=== PATIENT | female | born 1980 | race Caucasian/White ===

== ENCOUNTER 2024-09-02 11:29 | Outpatient (AMB) | payer OTHER, SELFPAY ==
--- NOTE | 2024-09-02 11:30 | A.OFFPC_ITS ---
Vital Signs 09/02/24 11:37 09/02/24 11:58 09/02/24 12:23 Height 5 ft 5.35 in Weight 185 lb 8 oz BMI 30.5 BP 168/84 H 164/78 H 132/70 Blood Pressure Location Rt brachial Lt brachial Lt brachial Position Sitting Sitting Respiration 16 Pulse 110 H Pulse Source Pulse Oximeter Temp 99 F Temp Source Oral Pulse Oximetry (%) 97 Oxygen Delivery Method Room Air Intake Visit Reasons: Est. Care Intake Note: New patient visit. Clinical Team Lead Required: No Medication List - Last Reconciled 09/02/24 by Breanna Rodriguez PA-C clonazepam 1 mg PO QID PRN sertraline 2.5 tablets daily Tobacco use date assessed: 09/02/24 Dental Screening Dental Screen Date: 09/02/24 Did you have a dental visit in the last 12 months?: Yes Did you have a dental problem in the last 6 months where you did not have access to dental care?: No Was dental information given to patient?: Patient has dentist HPI Est. Care HPI Details Pt is a 44 y/o female who presents today to establish care. She has a hx of anxiety, depression, ocd, white coat htn, hx of thyroiditis following pp, Psych: She is on sertraline and clonazepam. She follows with the [facility]. Overall feels well controlled. Her daughter just graduated hs and is going to be staying at [facility] this summer and this is stressing her out. CV: Bp is elevated today. Shes ates that it is always elevated in the doctors office, at the end of visit bp 132/70. She states 2 months ago she went to a walk in and it was 128/78. She took 2 shots of espresso prior to this appointment. No Cp or sob. No palpitations. She has never needed medications for bp or cholesterol. General: would like to lose weight. She states that she struggles with weight despite not eating much. She is not interested in any medication for this. States that she knows that she needs to walk around more. When she tries to move more she does get low back pain. Msk: has chronic low back pain and has seen PSS. She states that she knows she needs to work on some strength training. Collection Administrator: Overdue Mammo: Never had Colonoscopy: Never had Smoker: 30 years 1 ppd, no family history PFSH Surgical History (Updated 09/02/24 @ 12:02 by Kristan Patricia CMA) H/O wisdom tooth extraction H/O section Family History (Updated 09/02/24 @ 12:01 by Kristan Patricia CMA) Father Alcoholism Mother HTN (hypertension) Alcoholism Maternal Grandmother HTN (hypertension) High blood cholesterol Other Substance abuse Social History (Updated 09/02/24 @ 12:01 by Kristan Patricia CMA) Housing: House Alcohol intake: never Patient Tobacco Use Status: Current someday Tobacco user (Smokes a quarter of a cigarette to help with going to the bathroom. 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 1. Little interest or pleasure in doing things: not at all 2. Feeling down, depressed, or hopeless: several days 3. Trouble falling or staying asleep, or sleeping too much: not at all 4. Feeling tired or having little energy: not at all 5. Poor appetite or overeating: not at all 6. Feeling bad about yourself - or that you are a failure or have let yourself or your family down: not at all 7. Trouble concentrating on things, such as reading the newspaper or watching television: not at all 8. Moving or speaking so slowly that other people could have noticed. Or the opposite - being so fidgety or restless that you have been moving around a lot more than usual: not at all 9. Thoughts that you would be better off or of hurting yourself in some way: not at all Total score: 1 Depression Screening Interpretation: Negative Depression Screening Done: Yes 64923 - PHQ-9 Billing: Yes Source: Developed by Drs. Ab Mcginnis, Johana Hernández, Anmol Winston and colleagues, with an educational vasyl from [employer]. Thrive Questionnaire Date Thrive assessed: 08/26/24 I am a: Patient What is your living situation today?: I have a steady place to live Within the past 12 months, did the food you bought not last and you didn't have the money to get more?: Never true Within the past 12 months, did you worry whether your food would run out before you got money to buy more?: Never true Do you have trouble paying for medicines?: No Do you have trouble getting transportation to medical appointments?: No Do you have trouble paying your heating and electricity bill?: No Do you have trouble taking care of your child, family member or friend?: No Do you have trouble with day-to-day activities such as bathing, preparing meals, shopping, managing finances, etc.?: No Are you currently unemployed and looking for a job?: No Are you interested in more education?: No Please select the resources that you would like help with: None Currently or been in a relationship where the following occur: No concerns reported THRIVE Score: 0 AUDIT C Alcohol Use Questionnaire (AUDIT-C) 1. How often do you have a drink containing alcohol?: Never 2. How many drinks containing alcohol do you have on a typical day when you are drinking?: 1 or 2 3. How often do you have six or more drinks on one occasion?: Never Total Score: 0 EH-7 AMB Questionnaire EH-7 Date EH - 7 assessed: 09/02/24 Feeling nervous, anxious, or on edge: 1 = Several days Not being able to stop or control worryin = Several days Worrying too much about different things: 0 = Not at all Trouble relaxin = Not at all Being so restless that it is hard to sit still: 0 = Not at all Becoming easily annoyed or irritable: 0 = Not at all Feeling afraid as if something awful might happen: 1 = Several days Total EH-7 score (0-4 normal; 5-9 mild; 10-14 moderate; 15-21 severe): 3 Source: Developed by Drs. Ab Mcginnis, Johana Hernández, Anmol Winston and colleagues, with an educational vasyl from [employer]. EH-7 Assessment Billing EH-7 Assessment Tool: EH-7 Assessment 72908 Physical exam (Primary Care) Vital Signs: Last Vital Signs Temp 99 F 09/02/24 11:37 Pulse 110 H 09/02/24 11:37 Resp 16 09/02/24 11:37 BP 132/70 09/02/24 12:23 Pulse Ox 97 09/02/24 11:37 Oxygen Delivery Method Room Air 09/02/24 11:37 BMI result Body Mass Index 30.5 Tobacco/Smoking Status: Tobacco use Status Tobacco use date assessed 09/02/24 09/02/24 11:42 Patient Tobacco Use Status Current someday Tobacco ( 09/02/24 12:01 Smokes a quarter of a cigarette to help with going to the bathroom. Quit normal use 12/2023) e-Cigarette/Vaping Use Currently Using 09/02/24 12:01 PHQ-9: PHQ-9 Score PHQ-9: Total score 1 09/02/24 12:14 Depression Screening Interpretation: Negative Thrive Assessment: Date of Thrive Assessment Date Thrive assessed 08/26/24 09/02/24 11:42 Currently or been in a relationship where the following occur: No concerns reported Const Orientation/consciousness: patient oriented x3 HENMT Ears: hearing grossly normal bilaterally Neck Thyroid: Thyroid normal Lymphatic: no lymphadenopathy noted Resp Auscultation: clear to auscultation bilaterally Cardio Rate: regular rate Rhythm: regular rhythm Heart sounds: S1 normal heart sound present and S2 normal heart sound present GI Inspection: Yes normal to inspection Palpation (GI): Soft to palpation and Other GI palpation findings present (nontender, no cva tenderness) Auscultation: normoactive bowel sounds Rectal Exam - Female: deferred Skin General skin exam: no rashes or lesions noted Neuro General: patient oriented x3, gait normal and no focal motor deficits Coding Level of Care Code New Pt Level 4 (47049) Complex EM visit Add On G2211 Diagnoses Generalized anxiety disorder F41.1 Major depression in partial remission F32.4 OCD (obsessive compulsive disorder) F42.9 Elevated blood-pressure reading, without diagnosis of hypertension R03.0 Additional Codes EH-7 Assessment Billing - EH-7 Assessment Tool: EH-7 Assessment 67721 ([id number]) PHQ-9 - 18417 - PHQ-9 Billing: Yes ([id number]) Assessment & Plan Assessment & Plan (1) Generalized anxiety disorder: Code(s): F41.1 - Generalized anxiety disorder Category: Medical Plan: Currently managed by the [facility] (2) Major depression in partial remission: Code(s): F32.4 - Major depressive disorder, single episode, in partial remission Category: Medical Plan: As above (3) OCD (obsessive compulsive disorder): Code(s): F42.9 - Obsessive-compulsive disorder, unspecified Category: Medical Plan: As above (4) Elevated blood-pressure reading, without diagnosis of hypertension: Code(s): R03.0 - Elevated blood-pressure reading, without diagnosis of hypertension Category: Medical Plan: BP improved. Labs ordered today. We will follow up pending test results Plan Referral to gynecology. Referral to GI for colonoscopy. Mammogram ordered Orders: Orders Hemoglobin A1c Today E55.9 - Vitamin D deficiency, unspecified, F32.4 - Major depressive disorder, single episode, in partial remission, F41.1 - Generalized anxiety disorder, F42.9 - Obsessive-compulsive disorder, unspecified, R03.0 - Elevated blood-pressure reading, without diagnosis of hypertension, R73.01 - Impaired fasting glucose UA CC w/rflx Micro + Cult Today E55.9 - Vitamin D deficiency, unspecified, F32.4 - Major depressive disorder, single episode, in partial remission, F41.1 - Generalized anxiety disorder, F42.9 - Obsessive-compulsive disorder, unspecified, R03.0 - Elevated blood-pressure reading, without diagnosis of hypertension, Z13.220 - Encounter for screening for lipoid disorders Vitamin D 25-OH Total Today E55.9 - Vitamin D deficiency, unspecified, F32.4 - Major depressive disorder, single episode, in partial remission, F41.1 - Generalized anxiety disorder, F42.9 - Obsessive-compulsive disorder, unspecified, R03.0 - Elevated blood-pressure reading, without diagnosis of hypertension Complete Blood Count Auto Diff Today E55.9 - Vitamin D deficiency, unspecified, F32.4 - Major depressive disorder, single episode, in partial remission, F41.1 - Generalized anxiety disorder, F42.9 - Obsessive-compulsive disorder, unspecified, R03.0 - Elevated blood-pressure reading, without diagnosis of hypertension Comprehensive [place]. Panel Fast Today E55.9 - Vitamin D deficiency, unspecified, F32.4 - Major depressive disorder, single episode, in partial remission, F41.1 - Generalized anxiety disorder, F42.9 - Obsessive-compulsive disorder, unspecified, R03.0 - Elevated blood-pressure reading, without diagnosis of hypertension Lipid Panel Today E55.9 - Vitamin D deficiency, unspecified, F32.4 - Major depressive disorder, single episode, in partial remission, F41.1 - Generalized anxiety disorder, F42.9 - Obsessive-compulsive disorder, unspecified, R03.0 - Elevated blood-pressure reading, without diagnosis of hypertension TSH reflex Free T4 Today E55.9 - Vitamin D deficiency, unspecified, F32.4 - Major depressive disorder, single episode, in partial remission, F41.1 - Generalized anxiety disorder, F42.9 - Obsessive-compulsive disorder, unspecified, R03.0 - Elevated blood-pressure reading, without diagnosis of hypertension Vitamin B12 and Folate Today E55.9 - Vitamin D deficiency, unspecified, F32.4 - Major depressive disorder, single episode, in partial remission, F41.1 - Generalized anxiety disorder, F42.9 - Obsessive-compulsive disorder, unspecified, R03.0 - Elevated blood-pressure reading, without diagnosis of hypertension MM screening mammo BI Today Z12.31 - Encounter for screening mammogram for malignant neoplasm of breast Referrals STATE TESTED NURSING ASSISTANT Referral Z01.419 - Encounter for gynecological examination (general) (routine) without abnormal findings Gastroenterology Referral Z12.11 - Encounter for screening for malignant neoplasm of colon
[2024-09-02 11:37] VITALS: BP 168/84; PULSE 110; RESP 16; TEMP 37.2; O2SAT 97; BMI 30.5
[2024-09-02 11:58] VITALS: BP 164/78
[2024-09-02 12:23] VITALS: BP 132/70
== END 2024-09-02 16:26 | disposition home or self-care (01) ==
LOC: HO.HMCFM 11:29
PROVIDERS: PCP Physician Assistant; Visit Provider Physician Assistant
DX: F41.1 Generalized anxiety disorder (principal); F32.4 Major depressive disorder, single episode, in partial remission; F42.9 Obsessive-compulsive disorder, unspecified; R03.0 Elevated blood-pressure reading, without diagnosis of hypertension

== ENCOUNTER → 2024-09-02 11:29 | Outpatient (BNVA) | payer OTHER, SELFPAY | PROVIDERS: PCP Physician Assistant; Visit Provider Physician Assistant | DX: F41.1 Generalized anxiety disorder (principal); F42.9 Obsessive-compulsive disorder, unspecified; I10 Essential (primary) hypertension; F32.4 Major depressive disorder, single episode, in partial remission; R03.0 Elevated blood-pressure reading, without diagnosis of hypertension; E55.9 Vitamin D deficiency, unspecified | CPT/HCPCS: 96127; 99202 ==

== ENCOUNTER 2024-11-06 13:56 | Outpatient (AMB) | payer OTHER, SELFPAY ==
--- NOTE | 2024-11-06 14:01 | MHC.OFFVIS ---
Vital Signs 11/06/24 14:08 Height 5 ft 5.3 in Weight 187 lb BMI 30.8 BP 165/72 H Blood Pressure Location Lt brachial Position Sitting Pulse 95 Pulse Oximetry (%) 96 Oxygen Delivery Method Room Air Intake Visit Reasons: COLO SCREENING Intake Note: Patient new consult for 1st pre Colonoscopy screening. Patient denies any GI issues for today. 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 Darleen presents for her initial pre-colonoscopy screening, refered by PCP. She reports no current gastrointestinal symptoms. She states she has regular daily bowel movements without diarrhea, constipation, or blood noted in her stool. She also denies abdominal pain, nausea, heartburn, difficulty swallowing, or changes in appetite. However, she did experience temporary bowel irregularity during a recent vacation, attributed to altered settings and dietary changes, but her bowel movements normalized upon return. Her weight remains stable, and no notable systemic or gastrointestinal associated symptoms or comorbidities are reported. Social hx: -denies ETOH use -denies recreational drug use -Vapes, and smokes half a cigarette daily before her morning bowel movement to aid motility. - family hx as below -denies personal hx of CA -denies significant cardiopulmonary history -tolerated anesthesia in the past without difficulty. 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 [employer] Current occupational exposures/hazards: No Cognitive needs: No Hearing needs: No Vision needs: Yes (distance glasses) Review of Systems Const Reports as per [facility] ENT Reports as per HPI Card Reports as per HPI Resp Reports as per HPI GI Reports as per [facility] Reports as per HPI Physical Exam Vital Signs: Last Vital Signs Pulse 95 11/06/24 14:08 BP 165/72 H 11/06/24 14:08 Pulse Ox 96 11/06/24 14:08 Oxygen Delivery Method Room Air 11/06/24 14:08 BMI result Body Mass Index 30.8 Const General: healthy appearing, no acute distress and well developed Nutritional Appearance: average body habitus Orientation/consciousness: patient oriented x3 HEENT Head: Yes normal to inspection, Yes normocephalic and Yes atraumatic Face and sinus: Yes normal facial exam Eyes General: appearance normal, both eyes and all related structures Neck Neck: Yes normal visual inspection Resp Effort & Inspection: normal respiratory effort, able to speak in complete sentences, no tracheal deviation and symmetric chest movement Cardio Jugular venous distension: no JVD Neuro General: patient oriented x3 Gait exam (Neuro): Normal gait present Psych Appearance: grossly normal Mental Status: mental status grossly normal Speech and movement: Normal speech and movement present Affect: normal affect Attitude: cooperative Thought process: Normal thought process present Thought content: Normal thought content present Insight: Good insight present (Psych) Judgement: Good judgement present (Psych) Assessment & Plan Assessment & Plan (1) Colon cancer screening: Code(s): Z12.11 - Encounter for screening for malignant neoplasm of colon Category: Medical Plan: Due for index screening colonoscopy. No alarm features. Medications: -prescriptions for laxative tablets and MiraLax sent to pharmacy; instructions for Gatorade purchase and clear liquid diet given. Patient educated on scheduling process, procedure preparation, including avoiding certain foods and ensuring clear liquid intake Advised on necessity for ride post-procedure due to sedation. Plan Follow-up after colonoscopy as warranted or sooner if needed Time: I spent a total of 30 minutes on the date of encounter which includes: Preparing to see the patient (reviewed previous documentation, test results and medical history) Performing a medically appropriate exam and/or evaluation Ordering medications, tests, and procedures Documenting clinical information in the health record Medications: New bisacodyl (Dulcolax (bisacodyl)) Take four tablets pre colonoscopy instructions 20 mg (4 x 5 mg) PO ONCE 4 tabs 0RF 1 day polyethylene glycol 3350 (Miralax) per colonoscopy prep instructions 238 grams PO ONCE 238 grams 0RF Coding Level of Care Code New Pt New Pt Level 3 (75390) Patient Type New Diagnoses Colon cancer screening Z12.11
[2024-11-06 14:08] VITALS: BP 165/72; PULSE 95; O2SAT 96; BMI 30.8
== END 2024-11-06 14:27 | disposition home or self-care (01) ==
LOC: HO.HGI 13:57
PROVIDERS: PCP Physician Assistant; Visit Provider Nurse Practitioner Family
DX: Z01.818 Encounter for other preprocedural examination (principal); Z12.11 Encounter for screening for malignant neoplasm of colon
CPT/HCPCS: 99203

== ENCOUNTER → 2024-11-06 13:56 | Outpatient (BNVA) | payer OTHER, SELFPAY | PROVIDERS: PCP Physician Assistant; Visit Provider Nurse Practitioner Family | DX: Z01.818 Encounter for other preprocedural examination (principal) | CPT/HCPCS: 99202 ==

== ENCOUNTER 2024-11-10 08:30 | Outpatient (REF) | payer OTHER, SELFPAY ==
--- NOTE | ~2024-11-10 | MM_ITS ---
EXAMINATION: MM SCREENING DIGITAL BREAST TOMOSYNTHESIS, BILATERAL CLINICAL INFORMATION: Screening. Asymptomatic. COMPARISON: None. This is a baseline study. TECHNIQUE: Digital breast tomosynthesis is performed in both the craniocaudal and mediolateral oblique views along with computer-aided detection (CAD). FINDINGS: BREAST COMPOSITION: There are scattered areas of fibroglandular density (ACR BI-RADS breast composition Category b). RIGHT BREAST: No significant masses, suspicious calcifications or other abnormalities are seen. LEFT BREAST: Focal asymmetry in the upper outer quadrant middle depth at approximately 4.5 cm from the nipple. No suspicious calcifications or other abnormalities are seen. MM/MM tomosynthesis screening BI IMPRESSION: RIGHT BREAST: Negative, no mammographic evidence of malignancy. Normal interval follow-up is recommended in 12 months. LEFT BREAST: Focal asymmetry in the upper outer quadrant middle depth. ASSESSMENT: BI-RADS 0 - Incomplete: Needs additional Imaging. RECOMMENDATION: 1. Additional views of the left breast 2. Targeted ultrasound if warranted after review of the additional views. 3. Radiology department staff will contact the patient for additional imaging. FOLLOW-UP: Additional Imaging required This examination should not preclude the clinical evaluation of a suspicious palpable abnormality. This patient's information was entered into a reminder system with a target due date for their next mammogram. Electronically signed by: Bolivar Cottrell MD 11/16/2024 02:46 PM EDT
== END 2024-11-10 08:31 | disposition home or self-care (01) ==
LOC: HO.MAMMO 08:30
PROVIDERS: PCP Physician Assistant; Visit Provider Physician Assistant
DX: Z12.31 Encounter for screening mammogram for malignant neoplasm of breast (principal)
CPT/HCPCS: 77063; 77067

== ENCOUNTER → 2024-11-10 08:30 | Outpatient (BNV) | payer OTHER, SELFPAY | PROVIDERS: PCP Physician Assistant; Visit Provider Radiology Body Imaging | DX: Z12.31 Encounter for screening mammogram for malignant neoplasm of breast (principal) | CPT/HCPCS: 77063; 77067 ==

== ENCOUNTER 2024-12-15 14:30 | Outpatient (REF) | payer OTHER, SELFPAY ==
--- NOTE | ~2024-12-15 | US_ITS ---
EXAMINATION(S): 1. MM DIAGNOSTIC DIGITAL BREAST TOMOSYNTHESIS, LEFT 2. Targeted ultrasound of the left breast CLINICAL INFORMATION: Callback from screening for left breast focal asymmetry in the upper outer quadrant at about 4.5 cm from the nipple. COMPARISON: November 10, 2024 TECHNIQUE: Digital breast tomosynthesis is performed in full field ML 90 degrees along with computer-aided detection (CAD). Synthesized 2D images are generated from the tomosynthesis. Spot compression tomosynthesis were obtained. FINDINGS: BREAST COMPOSITION: There are scattered areas of fibroglandular density (ACR BI-RADS breast composition Category b). LEFT BREAST: Previously suggested focal asymmetry in the upper outer quadrant is pliable with spot compression. Targeted ultrasound of the left breast was performed at the location of the mammographic finding. The survey throughout the upper outer quadrant did not reveal suspicious sonographic findings. US/US breast LT limited mamm only IMPRESSION: LEFT BREAST: Negative, no mammographic evidence of malignancy. Normal interval follow-up is recommended in 12 months. ASSESSMENT: BI-RADS 1 - Negative RECOMMENDATION: 1 year F/U Results were provided to the patient at time of visit by the technologist. This patient's information was entered into a reminder system with a target due date for their next mammogram. Electronically signed by: Bolivar Cottrell MD 12/15/2024 04:16 PM EDT
== END 2024-12-15 14:31 | disposition home or self-care (01) ==
LOC: HO.MAMMO 14:30
PROVIDERS: PCP Physician Assistant; Visit Provider Physician Assistant
DX: N64.89 Other specified disorders of breast (principal)
CPT/HCPCS: 76642; 77061; 77065

== ENCOUNTER → 2024-12-15 14:30 | Outpatient (BNV) | payer OTHER, SELFPAY | PROVIDERS: PCP Physician Assistant; Visit Provider Radiology Body Imaging | DX: R92.8 Other abnormal and inconclusive findings on diagnostic imaging of breast (principal) | CPT/HCPCS: 76642; 77061; 77065 ==

== ENCOUNTER 2025-02-19 11:52 | Outpatient (REF) | payer OTHER, SELFPAY ==
[2025-02-19 14:21] LABS: MANUAL DIFF FLAG NO
[2025-02-19 14:48] LABS: Hematocrit 40.9 % (37.0-47.0); Hemoglobin 12.5 g/dl (12.0-16.0); Imm Gran Abs Auto 0.01 X10*3/uL (0.00-0.03); Imm Gran Pct Auto 0.2 % (0.0-0.4); Lymphocytes Absolute Auto 1.8 X10*3/uL (1.2-4.9); Mean Corpuscular HGB Conc 30.6 g/dl (31.0-35.0); Mean Corpuscular Hemoglobin 21.2 pg (27.0-33.0); Mean Corpuscular Volume 69.2 fL (80.0-98.0); NRBC Abs Auto 0.000 X10*3/uL (0.0-0.012); NRBC Pct Auto 0.0 /100WBC (0.0-0.2); Platelet Count 132 X10*3/uL (160-400); Red Blood Count 5.91 X10*6/uL (4.20-5.50); White Blood Count 6.2 X10*3/uL (4.8-10.8)
[2025-02-19 15:03] LABS: Alanine Aminotransferase 16 U/L (0-31); Albumin Level 4.4 g/dL (3.5-5.0); Alkaline Phosphatase 90 U/L (39-117); Anion Gap 12 (12-20); Aspartate Amino Transferase 27 U/L (5-31); Blood Urea Nitrogen 9 mg/dL (9-16); Calcium 8.9 mg/dL (8.4-10.2); Carbon Dioxide 29 mmol/L (22-29); Chloride 105 mmol/L (96-108); Cholesterol 235 mg/dL (<200); Estimated Glomerular Filt Rate > 60; HDL Cholesterol 31 mg/dL (>40); Potassium 4.0 mmol/L (3.3-5.1); Sodium 142 mmol/L (135-145); Total Protein 6.7 g/dL (6.5-8.0); Triglycerides 321 mg/dL (<150)
[2025-02-19 15:19] LABS: Folate 4.0 ng/mL (> or = 4.0); Vitamin B12 318 pg/mL (200-900)
== END 2025-02-19 11:53 | disposition home or self-care (01) ==
LOC: HO.WFDLDS 11:52
PROVIDERS: Visit Provider Physician Assistant
DX: F32.4 Major depressive disorder, single episode, in partial remission (principal); F42.9 Obsessive-compulsive disorder, unspecified; F41.1 Generalized anxiety disorder; E55.9 Vitamin D deficiency, unspecified; R73.01 Impaired fasting glucose; R03.0 Elevated blood-pressure reading, without diagnosis of hypertension
CPT/HCPCS: 36415; 80053; 80061; 82306; 82607; 82746; 83036; 84443; 85025

== ENCOUNTER 2025-03-11 15:32 | Outpatient (AMB) | payer OTHER, SELFPAY ==
[2025-03-11 15:34] VITALS: BP 151/74; PULSE 85; TEMP 36; O2SAT 98; BMI 31.5
--- NOTE | 2025-03-11 15:34 | MHC.PC.OV ---
Vital Signs 03/11/25 15:34 03/11/25 15:42 Height 5 ft 5.3 in Weight 191 lb 2 oz BMI 31.5 BP 151/74 H 128/78 Blood Pressure Location Lt brachial Lt brachial Position Sitting Sitting Pulse 85 Pulse Source Pulse Oximeter Temp 96.8 F Temp Source Oral Pulse Oximetry (%) 98 Oxygen Delivery Method Room Air Intake Visit Reasons: physical Intake Note: Physical Traveling Phlebotomist Required: No Allergies No Known Allergies Allergy (Verified 03/11/25 15:34) Medication List - Last Reconciled 03/11/25 by Breanna Rodriguez PA-C bisacodyl (Dulcolax (bisacodyl)) 20 mg (4 x 5 mg) PO ONCE 1 day cholecalciferol (vitamin D3) 1,250 mcg PO QWEEK 90 days clonazepam 1 mg PO QID PRN dulaglutide (Trulicity) 0.75 mg (0.5 mL) subcut QWEEK polyethylene glycol 3350 (Miralax) 238 grams PO ONCE sertraline 225 mg PO Tobacco use date assessed: 03/11/25 Dental Screening Dental Screen Date: 09/02/24 HPI physical HPI Details Pt is a 45 y/o female who presents today for a cpe. She has a hx of anxiety, depression, ocd, white coat htn, beta thalessemia, hx of thyroiditis following pp, labs showed low vitamin D, elevated cholesterol, prediabetes Psych: She is on sertraline and clonazepam. She follows with the [facility]. Overall feels well controlled. Her daughter just graduated hs and is going to be staying at [facility] this summer and this is stressing her out. CV: Bp is elevated today. Repeat bp 128/78. No Cp or sob. No palpitations. Endo: General: would like to lose weight. She states that she struggles with weight despite not eating much. She is not interested in any medication for this. States that she knows that she needs to walk around more. When she tries to move more she does get low back pain. Msk: has chronic low back pain and has seen PSS. She states that she knows she needs to work on some strength training. Capability Lead: Overdue- booked 03/31 Mammo: UTD 11/2024 Colonoscopy: Never had- was referred, scheduled 06/24 Smoker: 30 years 1 ppd, no family history PFSH Medical History (Updated 03/11/25 @ 15:52 by Breanna Rodriguez PA-C) Colon cancer screening Surgical History H/O wisdom tooth extraction H/O section Family History Father Alcoholism Mother HTN (hypertension) Alcoholism Maternal Grandmother HTN (hypertension) High blood cholesterol Other Substance abuse Social History Housing: House Alcohol intake: never Patient Tobacco Use Status: Current someday Tobacco user Cigarettes Per Day: 1 Years Smoked: 32 e-Cigarette/Vaping Use: Currently Using service: No Current occupational status: employed 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 [employer] Current occupational exposures/hazards: No Cognitive needs: No Hearing needs: No Vision needs: Yes (distance glasses) Questionnaire Thrive Questionnaire Date Thrive assessed: 08/26/24 I am a: Patient What is your living situation today?: I have a steady place to live Within the past 12 months, did the food you bought not last and you didn't have the money to get more?: Never true Within the past 12 months, did you worry whether your food would run out before you got money to buy more?: Never true Do you have trouble paying for medicines?: No Do you have trouble getting transportation to medical appointments?: No Do you have trouble paying your heating and electricity bill?: No Do you have trouble taking care of your child, family member or friend?: No Do you have trouble with day-to-day activities such as bathing, preparing meals, shopping, managing finances, etc.?: No Are you currently unemployed and looking for a job?: No Are you interested in more education?: No Please select the resources that you would like help with: None Currently or been in a relationship where the following occur: No concerns reported THRIVE Score: 0 EH-7 AMB Questionnaire EH-7 Date EH - 7 assessed: 09/02/24 Source: Developed by Drs. Ab Mcginnis, Johana Hernández, Anmol Winston and colleagues, with an educational vasyl from [employer]. Physical exam (Primary Care) Vital Signs: Last Vital Signs Temp 96.8 F 03/11/25 15:34 Pulse 85 03/11/25 15:34 BP 151/74 H 03/11/25 15:34 Pulse Ox 98 03/11/25 15:34 Oxygen Delivery Method Room Air 03/11/25 15:34 BMI result Body Mass Index 31.5 Tobacco/Smoking Status: Tobacco use Status Tobacco use date assessed 03/11/25 03/11/25 15:40 Patient Tobacco Use Status Current someday Tobacco 03/11/25 15:40 e-Cigarette/Vaping Use Currently Using 03/11/25 15:40 Thrive Assessment: Date of Thrive Assessment Date Thrive assessed 08/26/24 03/11/25 15:40 Currently or been in a relationship where the following occur: No concerns reported Results Reviewed Results Reviewed: Laboratory Tests 02/19/25 11:54 WBC 6.2 RBC 5.91 H Hgb 12.5 Hct 40.9 Plt Count 132 L Sodium 142 Potassium 4.0 Chloride 105 Carbon Dioxide 29 Anion Gap 12 BUN 9 Creatinine 0.78 Estimated GFR > 60 Fasting Glucose 107 H Estimat Average Glucose 131 Hemoglobin A1c % 6.2 H Calcium 8.9 Total Bilirubin 0.3 AST 27 ALT 16 Alkaline Phosphatase 90 Total Protein 6.7 Albumin 4.4 Triglycerides 321 H Cholesterol 235 H LDL Cholesterol, Calc 140 H HDL Cholesterol 31 L Vitamin B12 318 25-OH Vitamin D Total 11.3 L Folate 4.0 TSH 1.72 Coding Level of Care Code Est Pt Prev Care 40-64y(27625) Add On Preventative Visit Only Diagnoses Routine general medical examination at a health care facility Z00.00 Vitamin D deficiency E55.9 Dyslipidemia E78.5 Prediabetes R73.03 Elevated blood-pressure reading, without diagnosis of hypertension R03.0 Beta thalassemia D56.1 Assessment & Plan Assessment & Plan (1) Routine general medical examination at a health care facility: Code(s): Z00.00 - Encounter for general adult medical examination without abnormal findings Plan: Health maintenance reviewed Declines flu shot (2) Vitamin D deficiency: Code(s): E55.9 - Vitamin D deficiency, unspecified Category: Medical Plan: started supplement (3) Dyslipidemia: Code(s): E78.5 - Hyperlipidemia, unspecified Category: Medical Plan: 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 Discussed risks and benefits and adverse effects of this medication. nervous of metformin (5) Elevated blood-pressure reading, without diagnosis of hypertension: Code(s): R03.0 - Elevated blood-pressure reading, without diagnosis of hypertension Category: Medical Plan: Initially elevated. We will monitor this. She is going to work on diet and lifestyle modifications. (6) Beta thalassemia: Code(s): D56.1 - Beta thalassemia Category: Medical Plan: followed with hematology in the past during Orders: Orders Complete Blood Count Auto Diff Today E78.5 - Hyperlipidemia, unspecified, R03.0 - Elevated blood-pressure reading, without diagnosis of hypertension, R73.03 - Prediabetes Comprehensive [place]. Panel Fast Today E78.5 - Hyperlipidemia, unspecified, R03.0 - Elevated blood-pressure reading, without diagnosis of hypertension, R73.03 - Prediabetes Lipid Panel Today E78.5 - Hyperlipidemia, unspecified, R03.0 - Elevated blood-pressure reading, without diagnosis of hypertension, R73.03 - Prediabetes Hemoglobin A1c Today E78.5 - Hyperlipidemia, unspecified, R03.0 - Elevated blood-pressure reading, without diagnosis of hypertension, R73.01 - Impaired fasting glucose, R73.03 - Prediabetes Microalbumin, Random (w Creat) Today E78.5 - Hyperlipidemia, unspecified, R03.0 - Elevated blood-pressure reading, without diagnosis of hypertension, R73.03 - Prediabetes Medications: New dulaglutide (Trulicity) 0.75 mg (0.5 mL) subcut QWEEK 2 mL 2RF
[2025-03-11 15:42] VITALS: BP 128/78
== END 2025-03-11 16:01 | disposition home or self-care (01) ==
LOC: HO.HMCFM 15:33
PROVIDERS: PCP Physician Assistant; Visit Provider Physician Assistant
DX: Z00.00 Encounter for general adult medical examination without abnormal findings (principal); D56.1 Beta thalassemia; E55.9 Vitamin D deficiency, unspecified; E78.5 Hyperlipidemia, unspecified; R73.03 Prediabetes; R03.0 Elevated blood-pressure reading, without diagnosis of hypertension

== ENCOUNTER → 2025-03-11 15:32 | Outpatient (BNVA) | payer OTHER, SELFPAY | PROVIDERS: PCP Physician Assistant; Visit Provider Physician Assistant | DX: Z00.00 Encounter for general adult medical examination without abnormal findings (principal); R03.0 Elevated blood-pressure reading, without diagnosis of hypertension; D56.1 Beta thalassemia; E78.5 Hyperlipidemia, unspecified; E55.9 Vitamin D deficiency, unspecified; R73.03 Prediabetes | CPT/HCPCS: 99396 ==

== ENCOUNTER 2025-03-31 13:57 | Outpatient (REF) | payer OTHER, SELFPAY | END 2025-03-31 13:58 | disposition home or self-care (01) | LOC: HO.LNP 13:57 | PROVIDERS: PCP Physician Assistant; Visit Provider Advanced Practice Midwife | DX: Z01.419 Encounter for gynecological examination (general) (routine) without abnormal findings (principal); R73.03 Prediabetes; Z11.51 Encounter for screening for human papillomavirus (HPV); F17.210 Nicotine dependence, cigarettes, uncomplicated | CPT/HCPCS: 87626; 88175; 99386 ==

== ENCOUNTER 2025-03-31 13:57 | Outpatient (AMB) | payer OTHER, SELFPAY ==
[2025-03-31 14:20] VITALS: BP 130/80; BMI 31.0
--- NOTE | 2025-03-31 14:20 | MHC.OFFVIS ---
Vital Signs 03/31/25 14:20 Height 5 ft 5.3 in Weight 188 lb BMI 31.0 BP 130/80 Intake Visit Reasons: New patient Annual Rn Appeals Required: No Rn Appeals Services: Rn Appeals Present Information Interpreted: clinical only Boring Machine Set Up Operator: Boring Machine Set Up Operator Present Allergies No Known Allergies Allergy (Verified 03/31/25 14:20) Medication List - Last Reconciled 03/31/25 by Yuki Caldera CNM bisacodyl (Dulcolax (bisacodyl)) 20 mg (4 x 5 mg) PO ONCE 1 day cholecalciferol (vitamin D3) 1,250 mcg PO QWEEK 90 days clonazepam 1 mg PO QID PRN dulaglutide (Trulicity) 0.75 mg (0.5 mL) subcut QWEEK polyethylene glycol 3350 (Miralax) 238 grams PO ONCE sertraline 225 mg PO Is last menstrual period known: No HPI HPI New patient Annual: Details: Patient 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 She used to go to a practice in [place] with Dr. Fraga and his associates. She thinks she had an abnormal Pap smear in her very early 20s but all have been normal since. She had 2 children delivered at [facility] by .. She is lives with her and 2 children who were 13 and 18. She is not sexually active and has not been for the last 10 years at least she does not miss it. She has been a smoker and grew up around cigarette smoke all her life she has cut way down in the last year to 1 cigarette a day in the morning to help her relax to go to the bathroom and she does use an electronic cigarette as well her does smoke but he smokes outside She recently got diagnosed as prediabetic and she been recently prescribed Trulicity but she has not started it yet she is nervous about doing the injection but she is working up to doing it. She works from home and it has a very sedentary job so she thinks that is part of the issue. She recently had her 1st mammogram and she did get called back for 2nd look but it is all okay.. [facility] Medical History (Updated 03/31/25 @ 15:32 by Yuki Caldera CNM) Colon cancer screening Surgical History H/O wisdom tooth extraction H/O section Family History Father Alcoholism Mother HTN (hypertension) Alcoholism Maternal Grandmother HTN (hypertension) High blood cholesterol Other Substance abuse Social History (Updated 03/11/25 @ 15:43 by Kristan Patricia CMA) Housing: House Alcohol intake: never Patient Tobacco Use Status: Current someday Tobacco user Cigarettes Per Day: 1 Years Smoked: 32 e-Cigarette/Vaping Use: Currently Using service: No Current occupational status: employed 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 [employer] Current occupational exposures/hazards: No Cognitive needs: No Hearing needs: No Vision needs: Yes (distance glasses) Female Reproductive History Menstrual Age of Menarche: 12 control method: none Total pregnancies: 2 Physical Exam Vital Signs: Last Vital Signs BP 130/80 03/31/25 14:20 BMI result Body Mass Index 31.0 Const General: healthy appearing, comfortable, no acute distress, well developed and alert Nutritional Appearance: average body habitus Orientation/consciousness: patient oriented x3 Limitations: no limitations HEENT Head: Yes normocephalic Neck Neck: Yes normal visual inspection Chest Chest palpation & inspection: normal inspection of the chest Breast/axilla inspection: normal inspection of the breasts and normal inspection of the axillae Breast/axilla palpation: normal palpation of the breasts and normal palpation of the axillae Resp Effort & Inspection: normal respiratory effort GI Inspection: Yes normal to inspection, No Abdominal wall edema and No distended Palpation (GI): Soft to palpation and nontender Other: Evidence of previous C-sections. Scars slightly pink but not inflamed patient does not have any current itching abdominally under pannus External genital exam within normal limits vagina is pink and moist cervix is pink and smooth nulliparous healthy appearing clear mucus. Vagina is slightly narrowed. [place] moist rugated. Adnexa nontender nonenlarged uterus slightly difficult to feel secondary to pannus but not enlarged nontender. Good tone with Kegel General: Yes bladder normal to palpation External Female Exam: normal external appearance and normal appearance of the urethra Speculum Exam - Vagina: normal appearance of the vagina, normal palpation and normal vaginal discharge Speculum Exam - Cervix: normal appearance of the cervix, normal palpation and nontender Bimanual exam- vagina & uterus: normal bimanual exam, normal palpation, uterine size normal, bladder normal to palpation, consistency normal, normal palpation, uterine mobility normal, uterine shape normal, No Cervical tenderness present, non-tender and no cervical motion tenderness Bimanual Exam- Adnexa, other: normal adnexae, no masses, normal and No adnexal tenderness Neuro General: patient oriented x3 Assessment & Plan Assessment & Plan (1) Prediabetes: Code(s): R73.03 - Prediabetes Category: Medical (2) Women's annual routine gynecological examination: Code(s): Z01.419 - Encounter for gynecological examination (general) (routine) without abnormal findings Category: Medical (3) Papanicolaou smear for cervical cancer screening: Code(s): Z12.4 - Encounter for screening for malignant neoplasm of cervix Category: Medical (4) Cigarette smoker motivated to quit: Comment: Has down from a pack and a half, to 1 cigarette a day plus additional electronic smoking... Code(s): F17.210 - Nicotine dependence, cigarettes, uncomplicated Category: Social Hx Plan -----Discussed in this visit the following: healthy balanced diet, regular and consistent exercise, getting recommended health screens, doing the best she can for her particular health concerns, kegel exercises, pap smear screening and followup recommendations, mammography screening and SBE, normal changes in cycles in her life stage--- . Discussed the challenges of quitting smoking she has done a really good job so far. If this Pap smear is negative she probably does not need another 1 for 5 years but we would sit till see her yearly. She declined any testing for STIs this is not necessary. She has not been sexually active for about 10 years and does not miss it. She recently had her 1st mammogram. She is working up her encouraged to [email or web address]. Discussed the challenges of a sedentary job in fitting activity into one's life. Coding Level of Care Code New Pt Prev Care 40-64y(23758) Diagnoses Prediabetes R73.03 Women's annual routine gynecological examination Z01.419 Papanicolaou smear for cervical cancer screening Z12.4 Cigarette smoker motivated to quit F17.210
== END 2025-03-31 15:23 | disposition home or self-care (01) ==
LOC: HO.HWSM 13:57
PROVIDERS: PCP Physician Assistant; Visit Provider Advanced Practice Midwife
DX: Z01.419 Encounter for gynecological examination (general) (routine) without abnormal findings (principal); R73.03 Prediabetes; Z12.4 Encounter for screening for malignant neoplasm of cervix; F17.210 Nicotine dependence, cigarettes, uncomplicated
CPT/HCPCS: 99386; 99459